=== PATIENT | female | born 1960 | race Caucasian/White ===

== ENCOUNTER 2018-06-07 17:28 | Emergency (ER) | payer MEDICARE, OTHER | END 2018-06-07 19:31 | disposition home or self-care (01) | LOC: FTE 17:28 | DX: R21 Rash and other nonspecific skin eruption (principal); F17.210 Nicotine dependence, cigarettes, uncomplicated; Z98.61 Coronary angioplasty status | CPT/HCPCS: 99283 ==

== ENCOUNTER 2018-09-03 14:59 | Emergency (ER) | payer MEDICARE, OTHER | END 2018-09-03 16:09 | disposition home or self-care (01) | LOC: FTE 14:59 | DX: J06.9 Acute upper respiratory infection, unspecified (principal); F17.210 Nicotine dependence, cigarettes, uncomplicated; Z98.61 Coronary angioplasty status | CPT/HCPCS: 99282 ==

== ENCOUNTER 2018-09-28 13:00 | Emergency (ER) | payer MEDICARE, OTHER | END 2018-09-28 15:01 | disposition home or self-care (01) | LOC: FTE 13:00 | DX: J40 Bronchitis, not specified as acute or chronic (principal); Z87.891 Personal history of nicotine dependence; Z98.61 Coronary angioplasty status | CPT/HCPCS: 71045; 99283-25 ==

== ENCOUNTER 2019-04-10 08:57 | Emergency (ER) | payer MEDICARE, OTHER ==
[2019-04-10] MEDS: KETOROLAC 30 MG INJ IM (09:26)
== END 2019-04-10 09:52 | disposition home or self-care (01) ==
LOC: FTE 08:57
DX: M54.41 Lumbago with sciatica, right side (principal); F17.210 Nicotine dependence, cigarettes, uncomplicated; R05 Cough; I25.2 Old myocardial infarction; I10 Essential (primary) hypertension; R10.30 Lower abdominal pain, unspecified
CPT/HCPCS: 96372; 99284-25